=== PATIENT | male | born 1990 | race Caucasian/White ===

== ENCOUNTER 2017-10-26 08:48 | Emergency (ER) | payer MEDICAID ==
[~2017-10-26] VITALS: Ht 167.6 cm; Wt 55.3 kg
[2017-10-26 09:10] VITALS: BP 133/89
== END 2017-10-26 10:07 | disposition home or self-care (01) ==
LOC: ER 08:48
DX: S62.314A Displaced fracture of base of fourth metacarpal bone, right hand, initial encounter for closed fracture (principal); W22.8XXA Striking against or struck by other objects, initial encounter; Y93.89 Activity, other specified; Y99.8 Other external cause status; Y92.9 Unspecified place or not applicable
CPT/HCPCS: 29125; 73130

== ENCOUNTER 2017-11-29 11:41 | Emergency (ER) | payer MEDICAID ==
[~2017-11-29] VITALS: Ht 162.6 cm; Wt 54.4 kg
[2017-11-29 11:57] VITALS: BP 131/80
== END 2017-11-29 13:39 | disposition home or self-care (01) ==
LOC: ER 11:41
DX: S62.314A Displaced fracture of base of fourth metacarpal bone, right hand, initial encounter for closed fracture (principal); W18.39XA Other fall on same level, initial encounter; Y93.89 Activity, other specified; Y99.8 Other external cause status; Y92.89 Other specified places as the place of occurrence of the external cause
CPT/HCPCS: 73130

== ENCOUNTER 2018-01-17 22:45 | Emergency (ER) | payer MEDICAID ==
[~2018-01-17] VITALS: Ht 167.6 cm; Wt 56.7 kg
[2018-01-17] MEDS ORDERED: HALOPERIDOL LACTATE 5 MG/ML INJ VIAL ONE (23:07)
[2018-01-17] MEDS ORDERED: diphenhdrAMINE HCL 50 MG/1 ML VL ONE (23:07)
[2018-01-17] MEDS ORDERED: LORazepam 2MG/ML-1ML VIAL ONE (23:08)
[2018-01-17] MEDS ORDERED: diphenhdrAMINE HCL 50 MG/1 ML VL IM ONE (23:15)
[2018-01-17] MEDS ORDERED: HALOPERIDOL LACTATE 5 MG/ML INJ VIAL IM ONE (23:15)
[2018-01-17] MEDS ORDERED: LORazepam 2MG/ML-1ML VIAL IM ONE (23:15)
[2018-01-18 00:22] LABS: Basophils # (auto) 0 uL; Basophils % (auto) 0.6 % (0.0-2.0); Eosinophils # (auto) 0.1 uL; Eosinophils % (auto) 1.8 % (0.0-7.0); Hematocrit 45.1 % (41.0-53.0); Hemoglobin 15.4 g/dL (13.5-17.5); Lymphocytes # (auto) 2.5 uL; Lymphocytes % (auto) 34.4 % (10.0-50.0); Mean Corpuscular Hemoglobin 32.8 pg (28.0-32.0); Mean Corpuscular Hgb Conc. 34.1 g/dL (32.0-36.0); Monocytes # (auto) 0.7 uL; Monocytes % (auto) 10.1 % (0.0-12.0); Neutrophils # (auto) 3.9 uL; Neutrophils % (auto) 53.1 % (37.0-80.0); Nucleated Red Blood Cells % 0.1 %; Platelet Count (auto) 228 10^3/uL (140-450); Red Blood Cells 4.69 10^6/uL (4.5-5.90); Red Cell Distribution Width 12.4 % (11.8-14.3); White Blood Cell 7.3 10^3/uL (4.4-10.8)
[2018-01-18 00:38] LABS: Albumin 3.9 g/dL (3.4-5.0); BUN/Creatinine Ratio 10.7; Calcium 8.2 mg/dL (8.5-10.1); Magnesium 2.1 mg/dL (1.6-2.6); Potassium 3.6 mmol/L (3.5-5.1)
[2018-01-18 00:41] LABS: Bilirubin, Total 0.2 mg/dL (0.2-1.0); Salicylate 3.4 mg/dL (2.8-20.0); Total Protein 7.7 g/dL (6.4-8.2)
[2018-01-18 00:42] LABS: Acetaminophen < 2.0 ug/mL (10-30)
[2018-01-18 01:03] LABS: Urine Bacteria FEW /hpf (None Seen); Urine Blood Negative /uL (Negative); Urine Mucus FEW (None Seen); Urine Specific Gravity 1.005 (1.001-1.035); Urine WBC 1 /hpf (0 - 3)
[2018-01-18 01:16] LABS: Amphetamine Screen, Urine NEGATIVE (NEGATIVE); Barbiturate Scree,Urine NEGATIVE (NEGATIVE); Benzodiazephine Screen, Urine NEGATIVE (NEGATIVE); Cannabinoid Screen, Urine NEGATIVE (NEGATIVE); Opiate Scree,Urine NEGATIVE (NEGATIVE); Phencyclidine Screen, Urine NEGATIVE (NEGATIVE)
[2018-01-18 01:23] LABS: Cocaine Screen, Urine NEGATIVE (NEGATIVE)
[2018-01-18] MEDS ORDERED: SODIUM CHLORIDE 0.9% 3,000 ML IV ONE (01:30)
[2018-01-18] MEDS ORDERED: LORazepam 2MG/ML-1ML VIAL IV ONE (02:45)
[2018-01-18 13:49] VITALS: BP 129/64
== END 2018-01-18 14:29 | disposition home or self-care (01) ==
LOC: EDBD 22:45 → ER 22:45
DX: F10.120 Alcohol abuse with intoxication, uncomplicated (principal); F12.10 Cannabis abuse, uncomplicated; F15.10 Other stimulant abuse, uncomplicated
CPT/HCPCS: 36415; 51702; 80053; 80307; 80320; 80329; 81001; 83735; 85025; 94761; 96372; 96374; 99285; J1200; J1630; J2060; J7030; 93005

== ENCOUNTER 2018-01-19 20:50 | Emergency (ER) | payer MEDICAID ==
[~2018-01-19] VITALS: Ht 167.6 cm; Wt 56.7 kg
[2018-01-19 21:32] VITALS: BP 140/85
[2018-01-19 21:57] LABS: Basophils # (auto) 0.1 uL; Basophils % (auto) 1.1 % (0.0-2.0); Eosinophils # (auto) 0.2 uL; Hematocrit 45.2 % (41.0-53.0); Hemoglobin 15.7 g/dL (13.5-17.5); Lymphocytes # (auto) 2.6 uL; Lymphocytes % (auto) 38.4 % (10.0-50.0); Mean Corpuscular Hemoglobin 32.8 pg (28.0-32.0); Mean Corpuscular Hgb Conc. 34.8 g/dL (32.0-36.0); Mean Corpuscular Volume 94.4 fL (80.0-100.0); Monocytes # (auto) 0.7 uL; Monocytes % (auto) 9.9 % (0.0-12.0); Neutrophils # (auto) 3.3 uL; Neutrophils % (auto) 47.6 % (37.0-80.0); Nucleated Red Blood Cells % 0.2 %; Platelet Count (auto) 230 10^3/uL (140-450); Red Blood Cells 4.79 10^6/uL (4.5-5.90); Red Cell Distribution Width 12.5 % (11.8-14.3); White Blood Cell 6.8 10^3/uL (4.4-10.8)
[2018-01-19 22:13] LABS: Albumin 3.9 g/dL (3.4-5.0); BUN/Creatinine Ratio 13.4; Calcium 8.6 mg/dL (8.5-10.1); Potassium 3.9 mmol/L (3.5-5.1)
[2018-01-19 22:15] LABS: Acetaminophen < 2.0 ug/mL (10-30)
[2018-01-19 22:16] LABS: Bilirubin, Total 0.2 mg/dL (0.2-1.0); Total Protein 7.7 g/dL (6.4-8.2)
[2018-01-19] MEDS ORDERED: SODIUM CHLORIDE 0.9% 3,000 ML IV ONE (23:30)
[2018-01-20] MEDS ORDERED: THIAMINE INJ 100 MG, MULTIPLE VITAMIN 10 ML, FOLIC ACID 1 MG, MAGNESIUM SULF SDV 50% 8 ... IV SCH ×5 (12:00)
== END 2018-01-20 00:34 | disposition home or self-care (01) ==
LOC: EDBD 20:50 → ER 20:50
DX: F10.129 Alcohol abuse with intoxication, unspecified (principal); F12.10 Cannabis abuse, uncomplicated; F15.10 Other stimulant abuse, uncomplicated
CPT/HCPCS: 36415; 80053; 80320; 80329; 85025

== ENCOUNTER 2018-09-22 19:32 | Emergency (ER) | payer MEDICAID ==
[~2018-09-22] VITALS: Ht 165.1 cm; Wt 54.4 kg
[2018-09-22 19:51] VITALS: BP 114/68
== END 2018-09-22 22:39 | disposition home or self-care (01) ==
LOC: ER 19:32
DX: S16.1XXA Strain of muscle, fascia and tendon at neck level, initial encounter (principal); F10.20 Alcohol dependence, uncomplicated; Y90.9 Presence of alcohol in blood, level not specified; Y04.0XXA Assault by unarmed brawl or fight, initial encounter; Y93.89 Activity, other specified; Y92.89 Other specified places as the place of occurrence of the external cause; Y99.8 Other external cause status
CPT/HCPCS: 72040

== ENCOUNTER 2018-10-18 21:17 | Emergency (ER) | payer MEDICAID ==
[~2018-10-18] VITALS: Ht 165.1 cm; Wt 52.2 kg
[2018-10-19] MEDS ORDERED: LEVOFLOXACIN 250 MG TAB PO ONE (01:30)
[2018-10-19] MEDS ORDERED: cefTRIAXone SOD 1,000 MG VL IM ONE ×2 (01:30)
[2018-10-19 02:25] LABS: Albumin 4.1 g/dL (3.4-5.0); Calcium 9.2 mg/dL (8.5-10.1); Potassium 4.3 mmol/L (3.5-5.1)
[2018-10-19 02:27] LABS: BUN/Creatinine Ratio 15.5
[2018-10-19 02:29] LABS: Bilirubin, Total 0.7 mg/dL (0.2-1.0); Total Protein 8.7 g/dL (6.4-8.2)
[2018-10-19 02:37] LABS: Basophils # (auto) 0 uL; Basophils % (auto) 0.5 % (0.0-2.0); Eosinophils # (auto) 0 uL; Eosinophils % (auto) 0.1 % (0.0-7.0); Lymphocytes # (auto) 1.2 uL; Monocytes # (auto) 0.9 uL
[2018-10-19 02:39] LABS: Hematocrit 50.5 % (41.0-53.0); Lymphocytes % (auto) 21.9 % (10.0-50.0); Mean Corpuscular Hemoglobin 32.6 pg (28.0-32.0); Mean Corpuscular Hgb Conc. 35.7 g/dL (32.0-36.0); Mean Corpuscular Volume 91.2 fL (80.0-100.0); Monocytes % (auto) 16.4 % (0.0-12.0); Neutrophils # (auto) 3.3 uL; Neutrophils % (auto) 61.1 % (37.0-80.0); Nucleated Red Blood Cells % 0.7 %; Platelet Count (auto) 177 10^3/uL (140-450); Red Blood Cells 5.54 10^6/uL (4.5-5.90); Red Cell Distribution Width 13.3 % (11.8-14.3); White Blood Cell 5.4 10^3/uL (4.4-10.8)
[2018-10-19 02:57] VITALS: BP 128/77
== END 2018-10-19 02:51 | disposition home or self-care (01) ==
LOC: ER 21:19
DX: J06.9 Acute upper respiratory infection, unspecified (principal); K08.89 Other specified disorders of teeth and supporting structures
CPT/HCPCS: 36415; 71045; 80053; 85025; 87070; 87880; 96372; 99284; J0696

== ENCOUNTER 2019-03-13 14:39 | Emergency (ER) | payer MEDICAID ==
[~2019-03-13] VITALS: Ht 162.6 cm; Wt 54.4 kg
[2019-03-13 16:47] VITALS: BP 123/74
[2019-03-13] MEDS ORDERED: HYDROcodone-ACET 7.5/325MG TAB PO ONE (18:00)
== END 2019-03-13 18:21 | disposition home or self-care (01) ==
LOC: ER 14:48
DX: S80.02XA Contusion of left knee, initial encounter (principal); G89.29 Other chronic pain; M79.605 Pain in left leg; M79.642 Pain in left hand; F10.20 Alcohol dependence, uncomplicated; Z87.81 Personal history of (healed) traumatic fracture; Z88.5 Allergy status to narcotic agent; Y90.0 Blood alcohol level of less than 20 mg/100 ml; W18.39XA Other fall on same level, initial encounter; Y93.89 Activity, other specified; Y92.89 Other specified places as the place of occurrence of the external cause; Y99.8 Other external cause status
CPT/HCPCS: 73060; 73502; 73562